=== PATIENT | male | born 1980 | race Two or more races ===

== ENCOUNTER 2017-05-09 11:55 | Emergency (ER) | payer OTHER ==
[~2017-05-09] VITALS: Ht 160 cm; Wt 65.0 kg
[2017-05-09] MEDS ORDERED: ONDANSETRON 2MG/ML, 2ML ONE (12:13)
[2017-05-09] MEDS ORDERED: MORPHINE SULFATE 4 MG/ML, 1ML ONE (12:13)
[2017-05-09] MEDS ORDERED: LORazepam 2 MG/ML, 1ML ONE (12:13)
[2017-05-09] MEDS ORDERED: SODIUM CHLORIDE 0.9% 1,000ML IVBOLUS ONE ×2 (12:30→15:30)
[2017-05-09] MEDS ORDERED: LORazepam 1MG TABLET PO ONE (12:30)
[2017-05-09] MEDS ORDERED: ONDANSETRON 2MG/ML, 2ML IVPush ONE (12:30)
[2017-05-09] MEDS ORDERED: MORPHINE SULFATE 4 MG/ML, 1ML IVPush PRN (12:30)
[2017-05-09 12:46] LABS: ALBUMIN 3.7 g/dL (3.4-5.0); ANION GAP 13 mmol/L (5-15); CALCIUM 8.3 mg/dL (8.5-10.1); CHLORIDE 106 mmol/L (98-107); CREATININE 0.64 mg/dL (0.7-1.3)
[2017-05-09 12:53] LABS: BASOPHILS # (AUTO) 0.03 x10^3/uL (0-0.1); BASOPHILS % (AUTO) 1 % (0-1); EOSINOPHILS # (AUTO) 0.02 x10^3/uL (0-0.4); EOSINOPHILS % (AUTO) 0 % (1-7); LYMPHOCYTES # (AUTO) 1.29 x10^3/uL (1-3.4); LYMPHOCYTES % (AUTO) 22 % (22-44); MD NO; MEAN CORPUSCULAR HEMOGLOBIN 30.8 pg (27.5-34.5); MEAN CORPUSCULAR HGB CONC 34.2 g/dL (33.2-36.2); MEAN PLATELET VOLUME 8.1 fL (7.4-10.4); MONOCYTES % (AUTO) 10 % (2-9); NEUTROPHILS # (AUTO) 4.02 x10^3/uL (1.8-6.8); NEUTROPHILS % (AUTO) 67 % (42-75); PLATELET COUNT 172 x10^3/uL (130-400); RED BLOOD COUNT 5.35 x10^6/uL (4.38-5.82); RED CELL DISTRIBUTION WIDTH 12.4 % (9.4-14.8)
[2017-05-09 12:58] LABS: TROPONIN I < 0.015 ng/mL (0.000-0.045)
[2017-05-09] MEDS ORDERED: LORazepam 2 MG/ML, 1ML IVPush ONE (13:00)
[2017-05-09] MEDS ORDERED: VISIPAQUE 270 MG/ML, 50ML BOTTLE ONE (14:28)
[2017-05-09 15:14] VITALS: BP 159/106
== END 2017-05-09 17:05 | disposition home or self-care (01) ==
LOC: ED 13:20
DX: R07.2 Precordial pain (principal); R53.1 Weakness; E86.0 Dehydration; K29.20 Alcoholic gastritis without bleeding; I10 Essential (primary) hypertension
CPT/HCPCS: 36415; 71045; 71275; 80048; 82040; 84484; 85025; 85379; 93005; 96361; 96374; 96375; 99285; J2060; J2405; J7030; Q9966